=== PATIENT | female | born 1980 | race American Indian/Alaskan Native ===

== ENCOUNTER 2018-09-05 21:37 | Emergency (ER) | payer OTHER ==
[2018-09-05] MEDS ORDERED: TYLENOL PO ONE (22:39)
--- NOTE | 2018-09-05 22:42 | Emergency Department Report ---
HPI - HPI HPI: Room 17 The patient is a 38-year-old female presenting with chief complaint of vaginal bleeding. The patient states she is approximately 2 weeks and has not yet seen an CONSUMER EDUCATOR for this . Patient states approximately 3 hours ago she developed vaginal bleeding. The patient states she put 5 maxipads on at one time. Patient denies any passage of tissue. Patient complains of lower a bdominal pressure Location: Pelvis Duration: 3 hours Quality: Pressure Severity: Moderate Modifying factors: [see above] Context: [see above] Mode of transportation: [not driving] <BOZENA YOU - Last Filed: 09/06/18 01:28> <AARON BLACKMAN - Last Filed: 09/06/18 03:30> - General Chief Complaint: Vaginal Bleeding Time Seen by Provider: 09/05/18 22:30 ED Past Medical Hx - Past Medical History Previous Medical History?: No - Surgical History Past Surgical History?: No Additional Surgical History: - Family History Family history: no significant - Social History Smoking Status: Never Smoker Substance Use Type: Alcohol (occasional) <BOZENA YOU - Last Filed: 09/06/18 01:28> <AARON BLACKMAN - Last Filed: 09/06/18 03:30> - Medications Home Medications: Home Medications Medication Instructions Recorded Confirmed Last Taken Type Ibuprofen [Motrin 800 MG tab] 800 mg PO TID PRN #30 tablet 09/06/18 Unknown Rx Methylergonovine [Methergine] 0.2 mg PO Q6H #4 tablet 09/06/18 Unknown Rx ED Review of Systems ROS: Stated complaint: ABD PAIN/VAG BLEED/10WKS PREG Other details as noted in HPI Constitutional: no symptoms reported Eyes: denies: eye pain ENT: denies: throat pain Respiratory: no symptoms reported Cardiovascular: denies: chest pain Endocrine: no symptoms reported Gastrointestinal: abdominal pain Genitourinary: abnormal menses Musculoskeletal: denies: back pain Neurological: denies: headache <BOZENA YOU - Last Filed: 09/06/18 01:28> ROS: Stated complaint: ABD PAIN/VAG BLEED/10WKS PREG Other details as noted in HPI <AARON BLACKMAN - Last Filed: 09/06/18 03:30> Physical Exam - Physical Exam Vital Signs: Vital Signs 09/05/18 09/05/18 21:55 22:19 Temperature 98.4 F Pulse Rate 113 H 93 H Respiratory 18 20 Rate Blood Pressure 108/78 Blood Pressure 98/53 [Left] O2 Sat by Pulse 97 Oximetry Physical Exam: GENERAL: The patient is well-developed well-nourished female lying on stretcher not appearing to be in acute distress. [] HEENT: Normocephalic. Atraumatic. Extraocular motions are intact. Patient has moist mucous membranes. NECK: Supple. Trachea midline CHEST/LUNGS: Clear to auscultation. There is no respiratory distress noted. HEART/CARDIOVASCULAR: Regular. There is no tachycardia. There is no gallop rub or murmur. ABDOMEN: Abdomen is soft, nontender. Patient has normal bowel sounds. There is no abdominal distention. SKIN: There is no rash. There is no edema. There is no diaphoresis. NEURO: The patient is awake, alert, and oriented. The patient is cooperative. The patient has normal speech MUSCULOSKELETAL: There is no evidence of acute injury. PELVIC: Large amount of dark red blood in the vaginal vault. Moderate amount of clots present. Unable to visualize cervix <BOZENA YOU - Last Filed: 09/06/18 01:28> - Physical Exam Vital Signs: Vital Signs 09/05/18 09/05/18 09/05/18 21:55 22:19 23:42 Temperature 98.4 F Pulse Rate 113 H 93 H Respiratory 18 20 Rate Blood Pressure 108/78 Blood Pressure 98/53 [Left] O2 Sat by Pulse 97 98 Oximetry 09/05/18 09/06/18 09/06/18 23:46 00:00 00:16 Temperature Pulse Rate Respiratory Rate Blood Pressure 112/65 112/65 Blood Pressure [Left] O2 Sat by Pulse 99 99 100 Oximetry 09/06/18 09/06/18 09/06/18 00:30 00:46 01:00 Temperature Pulse Rate Respiratory Rate Blood Pressure 109/70 116/62 112/68 Blood Pressure [Left] O2 Sat by Pulse 100 100 97 Oximetry 09/06/18 09/06/18 09/06/18 01:16 01:21 01:30 Temperature 98.5 F Pulse Rate 82 Respiratory Rate Blood Pressure 112/68 107/64 Blood Pressure [Left] O2 Sat by Pulse 98 99 Oximetry 09/06/18 09/06/18 09/06/18 01:46 02:00 02:16 Temperature Pulse Rate Respiratory Rate Blood Pressure 107/64 116/71 116/71 Blood Pressure [Left] O2 Sat by Pulse 100 100 98 Oximetry 09/06/18 09/06/18 02:30 02:46 Temperature Pulse Rate Respiratory Rate Blood Pressure 110/80 110/80 Blood Pressure [Left] O2 Sat by Pulse 100 100 Oximetry <AARON BLACKMAN - Last Filed: 09/06/18 03:30> ED Course Vital Signs 09/05/18 09/05/18 21:55 22:19 Temperature 98.4 F Pulse Rate 113 H 93 H Respiratory 18 20 Rate Blood Pressure 108/78 Blood Pressure 98/53 [Left] O2 Sat by Pulse 97 Oximetry - Consultations Consultation #1: 09/06/18 01:06 CONSUMER EDUCATOR paged 09/06/18 01:28 Case discussed with [facility] brush trimming machine setter. States she will contact Dr. Jones and call back with recommendations <BOZENA YOU - Last Filed: 09/06/18 01:28> Vital Signs 09/05/18 09/05/18 09/05/18 21:55 22:19 23:42 Temperature 98.4 F Pulse Rate 113 H 93 H Respiratory 18 20 Rate Blood Pressure 108/78 Blood Pressure 98/53 [Left] O2 Sat by Pulse 97 98 Oximetry 09/05/18 09/06/18 09/06/18 23:46 00:00 00:16 Temperature Pulse Rate Respiratory Rate Blood Pressure 112/65 112/65 Blood Pressure [Left] O2 Sat by Pulse 99 99 100 Oximetry 09/06/18 09/06/18 09/06/18 00:30 00:46 01:00 Temperature Pulse Rate Respiratory Rate Blood Pressure 109/70 116/62 112/68 Blood Pressure [Left] O2 Sat by Pulse 100 100 97 Oximetry 09/06/18 09/06/18 09/06/18 01:16 01:21 01:30 Temperature 98.5 F Pulse Rate 82 Respiratory Rate Blood Pressure 112/68 107/64 Blood Pressure [Left] O2 Sat by Pulse 98 99 Oximetry 09/06/18 09/06/18 09/06/18 01:46 02:00 02:16 Temperature Pulse Rate Respiratory Rate Blood Pressure 107/64 116/71 116/71 Blood Pressure [Left] O2 Sat by Pulse 100 100 98 Oximetry 09/06/18 09/06/18 02:30 02:46 Temperature Pulse Rate Respiratory Rate Blood Pressure 110/80 110/80 Blood Pressure [Left] O2 Sat by Pulse 100 100 Oximetry <AARON BLACKMAN - Last Filed: 09/06/18 03:30> ED Medical Decision Making - Lab Data Result diagrams: 09/05/18 23:42 Laboratory Tests 09/05/18 09/05/18 09/05/18 23:00 23:42 23:42 WBC 11.2 H RBC 3.51 L Hgb 10.6 Hct 31.5 MCV 90 MCH 30 MCHC 34 RDW 16.1 H Plt Count 214 Lymph % (Auto) 13.3 L [place] % (Auto) 4.3 Eos % (Auto) 0.5 Baso % (Auto) 0.2 Lymph # 1.5 [place] # 0.5 Eos # 0.1 Baso # 0.0 Seg Neutrophils % 81.7 H Seg Neutrophils # 9.2 H HCG, Quant 8889 H Blood Type A POSITIVE - Radiology Data Radiology results: report reviewed (pelvic ultrasound), image reviewed (pelvic ultrasound) [facility] [address] [place] [address] Ultrasound Report Signed Patient: NINA RAJPUT MR# : [id number] : 1980 Acct:[id number] Age/Sex: 38 / F ADM Date: 09/05/18 Loc: ED Attending Dr: Ordering Physician: BOZENA YOU MD Date of Service: 09/05/18 Procedure(s): US OB transvaginal Accession Number(s): [id number] cc: BOZENA YOU MD PROCEDURE: US OB TRANSVAGINAL TECHNIQUE: Real-time transabdominal and transvaginal sonography of the uterus, placenta, amniotic fluid, adnexa, and fetus was performed with image documentation. Measurements were obtained to determine age/size. M-mode Doppler was used to document heartbeat. ADDITIONAL GESTATION: None. HISTORY: vaginal bleeding COMPARISONS: None . FINDINGS: Uterus size is 12.8 x 8 x 7.7 cm. Identified in the endometrial canal near the cervix there is a gestational sac. No evidence of a pole or yolk sac. The size of the gestational sac is 40 mm. This would correspond to an approximate 9 week gestation. The right ovary size is 2.4 x 2 x 1.7 cm. The right ovary has a normal taryn earance. The left ovary is not visualized. The findings are consistent with spontaneous incomplete . IMPRESSION: Spontaneous incomplete of an approximate 9 week gestation. The empty gestational sac is identified in the lower uterine segment endometrial canal near the cervix. This document is electronically signed by Fatmata Blackman DO., September 06 2018 12:25:16 AM ET Transcribed By: [facility] Dictated By: FATMATA BLACKMAN MD Electronically Authenticated By: FATMATA BLACKMAN MD Signed Date/Time: 09/06/1826 DD/ TD/TT: 09/06/187 - Differential Diagnosis threatened , spontaneous , incomplete <BOZENA YOU - Last Filed: 09/06/18 01:28> - Lab Data Result diagrams: 09/05/18 23:42 - Radiology Data I highly appreciate the assistance of consulting Dr. Jones who immediately came to the emergency department. She treated manage and then discharged patient. Diagnosis spontaneous . Discharged home. Prescriptions arranged by Dr. Jones. <AARNO BLACKMAN - Last Filed: 09/06/18 03:30> Critical care attestation.: If time is entered above; I have spent that time in minutes in the direct care of this critically ill patient, excluding procedure time. <BOZENA YOU - Last Filed: 09/06/18 01:28> Critical care attestation.: If time is entered above; I have spent that time in minutes in the direct care of this critically ill patient, excluding procedure time. <AARON BLACKMAN - Last Filed: 09/06/18 03:30> ED Disposition <BOZENA YOU - Last Filed: 09/06/18 01:28> Is pt being admited?: No Does the pt Need Aspirin: No <AARON BLACKMAN - Last Filed: 09/06/18 03:30> Clinical Impression: Spontaneous Disposition: DC-01 TO HOME OR SELFCARE Condition: Good Prescriptions: Methylergonovine [Methergine] 0.2 mg PO Q6H #4 tablet Ibuprofen [Motrin 800 MG tab] 800 mg PO TID PRN #30 tablet PRN Reason: Pain Referrals: FLORENCE JONES MD [Staff Physician] - [facility] MD NATASHA [Primary Care Provider] - 3-5 Days Forms: Accompanied Note, Work/School Release Form
[2018-09-06 00:07] LABS: Basophils % (Auto) 0.2 % (0.0-1.8); Eosinophils # (Auto) 0.1 K/mm3 (0.0-0.4); Eosinophils % (Auto) 0.5 % (0.0-4.3); Hematocrit 31.5 % (30.3-42.9); Hemoglobin 10.6 gm/dl (10.1-14.3); Lymphocytes # (Auto) 1.5 K/mm3 (1.2-5.4); Lymphocytes % (Auto) 13.3 % (13.4-35.0); Mean Corpuscular HGB Conc 34 % (30-34); Mean Corpuscular Volume 90 fl (79-97); Monocytes # (Auto) 0.5 K/mm3 (0.0-0.8); Monocytes % (Auto) 4.3 % (0.0-7.3); Platelet Count 214 K/mm3 (140-440); Red Blood Count 3.51 M/mm3 (3.65-5.03); Red Cell Distribution Width 16.1 % (13.2-15.2)
--- NOTE | 2018-09-06 00:27 | Ultrasound Report ---
PROCEDURE: US OB <= 14 WEEKS FETUS TECHNIQUE: Real-time transabdominal and transvaginal sonography of the uterus, placenta, amniotic fl uid, adnexa, and fetus was performed with image documentation. Measurements were obtained to determin e age/size. M-mode Doppler was used to document heartbeat. ADDITIONAL GESTATION: None. HISTORY: vaginal bleeding COMPARISONS: None . FINDINGS: Uterus size is 12.8 x 8 x 7.7 cm. Identified in the endometrial canal near the cervix there is a gestational sac. No evidence of a feta l pole or yolk sac. The size of the gestational sac is 40 mm. This would correspond to an approximate 9 week gestation. The right ovary size is 2.4 x 2 x 1.7 cm. The right ovary has a normal appearance. The left ovary is not visualized. The findings are consistent with spontaneous incomplete . IMPRESSION: Spontaneous incomplete of an approximate 9 week gestation. The empty gestational sac is identified in the lower uterine segment endometrial canal near the cervix. This document is electronically signed by Fatmata Blackman DO., September 06 2018 12:24:17 AM ET
[2018-09-06] MEDS ORDERED: ZOFRAN IV ONE (00:32)
[2018-09-06] MEDS ORDERED: SUBLIMAZE IV ONE (00:32)
[2018-09-06 00:35] LABS: Bilirubin,Urine NEG (Negative); Blood,Urine LG (Negative); Color,Urine Red (Yellow); RBC,Urine > 182.0 /HPF (0.0-6.0); Urobilinogen,Urine < 2.0 mg/dL (<2.0)
[2018-09-06 00:36] LABS: WBC,Urine < 1.0 /HPF (0.0-6.0)
[2018-09-06] MEDS ORDERED: NACL 0.9% 1000 ML 1,000 ML IV ONE (01:29)
[2018-09-06] MEDS ORDERED: METHERGINE IM ONE (01:32)
[2018-09-06] MEDS ORDERED: TORADOL ONE (02:30)
--- NOTE | 2018-09-06 02:37 | Discharge Summary ---
Providers - Providers Date of discharge: 09/06/18 09/06/18 01:34 Consult to Physician [CONS] Urgent Comment: Consulting Provider: FLORENCE JONES Physician Instructions: Reason For Exam: incomplete [facility] Condition: Good Pertinent studies: TVUS Hospital course: This is a 38yof who presented with vaginal bleeding that started last pm. Her evaluation revealed an ~9 week empty gestational sac in the CHAR and cervix. Past Medical History Previous Medical History?: No - Surgical History Past Surgical History?: No Additional Surgical History: - Family History Family history: no significant - Social History Smoking Status: Never Smoker Substance Use Type: Alcohol (occasional) Disposition: DC-01 TO HOME OR SELFCARE - Discharge Diagnoses (1) Incomplete Status: Resolved Core Measure Documentation - Palliative Care Palliative Care/ Comfort Measures: Not Applicable - Core Measures Any of the following diagnoses?: none Exam - Constitutional Vitals: Temp Pulse Resp BP Pulse Ox 98.5 F 82 20 112/68 98 09/06/18 01:21 09/06/18 01:21 09/05/18 22:19 09/06/18 01:16 09/06/18 01:16 General appearance: Present: no acute distress - Respiratory Respiratory effort: normal - Cardiovascular Rhythm: regular - Extremities Extremities: no ischemia, No edema - Abdominal General gastrointestinal: Present: soft, non-tender Female genitourinary: Present: other (SSE: Large clots and POC's removed from vagina. Methergine IM given. Tissue sent to pathology. VE: cervix 1cm, minimal bleeding after clots and tissue removed. Uterus small, noadnexal masses palpated) - Psychiatric Psychiatric: appropriate mood/affect, intact judgment & insight, memory intact, cooperative Plan Activity: other (No sex, stay home. Take Ibuprofen every 6 hours for the next 24 hours then as needed, void frequently) Weight Bearing Status: Full Weight Bearing Diet: regular (Drink 90oz water a day) Special Instructions: no heavy lifting (>25lb) Additional Instructions: Call your Provider as soon as possible to make an appointment. You may follow up with Dr. Jones 3-5 days. Call office or retrun to ED for fever, chill, nausea, vomiting, heavy vaginal bleeding. Follow up with: ABEBA VALDEZ MD [Primary Care Provider] - 3-5 Days FLORENCE JONES MD [Staff Physician] - Forms: Work/School Release Form Prescriptions: Methylergonovine [Methergine] 0.2 mg PO Q6H #4 tablet Ibuprofen [Motrin 800 MG tab] 800 mg PO TID PRN #30 tablet PRN Reason: Pain
[2018-09-06] MEDS ORDERED: TORADOL IV ONE (02:49)
[2018-09-06 03:54] VITALS: BP 124/70
== END 2018-09-06 04:08 | disposition home or self-care (01) ==
LOC: ED 21:37
DX: O03.9 Complete or unspecified spontaneous abortion without complication (principal); Z3A.01 Less than 8 weeks gestation of pregnancy
CPT/HCPCS: 36415; 76801; 76817; 81001; 84702; 85025; 86850; 86900; 86901; 88305; 96372; 96374; 96375; 99284; J1885; J2210; J2405; J3010; J7030